=== PATIENT | male | born 1970 | race Caucasian/White ===

== ENCOUNTER → 2021-04-03 | Outpatient (CLI) | payer BC ==
[~2021-04-03] MED LIST: ALBU17IN2 INH; CELE10TA PO; CELE20TA PO; LIPI10TA PO; NO HOME MEDICATIONS; No home meds; PAXI20TA3 PO; TRAZ100T2 PO; VENTAER IN
== END ==
LOC: M LAB 10:39
PROVIDERS: ATTEND Nurse Practitioner Family
DX: F31.30 Bipolar disorder, current episode depressed, mild or moderate severity, unspecified (principal)

== ENCOUNTER → 2021-05-08 | Outpatient (CLI) | payer BC ==
[2021-05-08 11:19] LABS: HEMATOCRIT 41.5 % (42.0-52.0); HEMOGLOBIN 14.5 g/dl (13.5-17.5); MEAN CORPUSCULAR HEMOGLOBIN 30.1 pg (27.0-33.0); MEAN CORPUSCULAR HGB CONC 34.9 g/dl (32.0-36.5); MEAN CORPUSCULAR VOLUME 86.3 fl (80.0-96.0); PLATELET COUNT, AUTOMATED 317 10^3/uL (150-450); RED BLOOD COUNT 4.81 10^6/uL (4.30-6.10); WHITE BLOOD COUNT 7.5 10^3/uL (4.0-10.0)
[2021-05-08 12:18] LABS: ALBUMIN 4.2 GM/DL (3.2-5.2); ALT/SGPT 39 U/L (12-78); BILIRUBIN,TOTAL 0.7 MG/DL (0.2-1.0); BLOOD UREA NITROGEN 14 MG/DL (7-18); CARBON DIOXIDE LEVEL 26 MEQ/L (21-32); CHLORIDE LEVEL 106 MEQ/L (98-107); CREATININE FOR GFR 0.94 MG/DL (0.70-1.30); GLOMERULAR FILTRATION RATE > 60.0 (>60); GLUCOSE, FASTING 109 MG/DL (70-100); LITHIUM LEVEL 0.31 MEQ/L (0.60-1.20); POTASSIUM SERUM 4.4 MEQ/L (3.5-5.1); SODIUM LEVEL 139 MEQ/L (136-145); TOTAL PROTEIN 7.4 GM/DL (6.4-8.2)
== END ==
LOC: M LAB 10:17
PROVIDERS: ATTEND Nurse Practitioner Family
DX: F31.30 Bipolar disorder, current episode depressed, mild or moderate severity, unspecified (principal)

== ENCOUNTER → 2021-06-06 | Outpatient (CLI) | payer BC | LOC: M LAB 09:56 | PROVIDERS: ATTEND Nurse Practitioner Family | DX: F31.30 Bipolar disorder, current episode depressed, mild or moderate severity, unspecified (principal) ==

== ENCOUNTER → 2021-08-08 | Outpatient (CLI) | payer BC | LOC: M LAB 13:04 | PROVIDERS: ATTEND Nurse Practitioner Family | DX: F31.30 Bipolar disorder, current episode depressed, mild or moderate severity, unspecified (principal); Z51.81 Encounter for therapeutic drug level monitoring ==

== ENCOUNTER → 2021-12-24 | Outpatient (CLI) | payer BC ==
[2021-12-24 10:56] LABS: BASO # 0.1 10^3/uL (0.0-0.2); BASO % 0.9 % (0.0-1.0); EOS # 0.2 10^3/uL (0.0-0.5); EOS % 2.6 % (0.0-3.0); HEMATOCRIT 41.1 % (42.0-52.0); HEMOGLOBIN 14.6 g/dl (13.5-17.5); LYMPH # 1.8 10^3/uL (1.5-5.0); LYMPH % 22.7 % (24.0-44.0); MEAN CORPUSCULAR HEMOGLOBIN 30.2 pg (27.0-33.0); MEAN CORPUSCULAR HGB CONC 35.5 g/dl (32.0-36.5); MEAN CORPUSCULAR VOLUME 84.9 fl (80.0-96.0); MONO # 0.8 10^3/uL (0.0-0.8); MONO % 10.3 % (2.0-8.0); NEUTROPHILS # 5.1 10^3/uL (1.5-8.5); NEUTROPHILS % 63.3 % (36.0-66.0); PLATELET COUNT, AUTOMATED 363 10^3/uL (150-450); RED BLOOD COUNT 4.84 10^6/uL (4.30-6.10); WHITE BLOOD COUNT 8.1 10^3/uL (4.0-10.0)
[2021-12-24 12:17] LABS: ALBUMIN 4.2 GM/DL (3.2-5.2); BLOOD UREA NITROGEN 11 MG/DL (7-18); CALCIUM LEVEL 9.9 MG/DL (8.5-10.1); CARBON DIOXIDE LEVEL 28 MEQ/L (21-32); CHLORIDE LEVEL 107 MEQ/L (98-107); CHOLESTEROL LEVEL 214 MG/DL (<200); CHOLESTEROL RISK RATIO 6.294 (<5); CREATININE FOR GFR 0.95 MG/DL (0.70-1.30); FERRITIN 112 NG/ML (26-388); FOLATE 17.8 NG/ML (>5.4); GLOMERULAR FILTRATION RATE > 60.0 (>60); GLUCOSE, FASTING 113 MG/DL (70-100); HDL CHOLESTEROL 34 MG/DL (>40); HEMOGLOBIN A1c 5.7 %; NON-HDL-C 180 MG/DL; PHOSPHORUS LEVEL 3.7 MG/DL (2.5-4.9); POTASSIUM SERUM 4.5 MEQ/L (3.5-5.1); SODIUM LEVEL 141 MEQ/L (136-145); TRIGLYCERIDES LEVEL 413 MG/DL (<150); VITAMIN B12 LEVEL 602 PG/ML (247-911)
== END ==
LOC: M LAB 10:29
PROVIDERS: ATTEND Physician Assistant
DX: Z02.2 Encounter for examination for admission to residential institution (principal); Z13.1 Encounter for screening for diabetes mellitus; Z13.5 Encounter for screening for eye and ear disorders; I10 Essential (primary) hypertension; R20.9 Unspecified disturbances of skin sensation; R53.83 Other fatigue; E66.9 Obesity, unspecified

== ENCOUNTER → 2022-02-04 | Outpatient (CLI) | payer BC | LOC: M LAB 10:10 | PROVIDERS: ATTEND Nurse Practitioner Family | DX: F31.30 Bipolar disorder, current episode depressed, mild or moderate severity, unspecified (principal) ==

== ENCOUNTER → 2022-05-22 | Outpatient (CLI) | payer OTHER, SELFPAY | LOC: M LAB 15:16 | PROVIDERS: ATTEND Registered Nurse Psychiatric/Mental Health | DX: F31.30 Bipolar disorder, current episode depressed, mild or moderate severity, unspecified (principal) ==

== ENCOUNTER → 2022-06-03 | Outpatient (CLI) | payer OTHER | LOC: M SLEEP HO 08:56 | PROVIDERS: ATTEND Nurse Practitioner Family | DX: R06.83 Snoring (principal) ==

== ENCOUNTER → 2022-07-29 | Outpatient (REF) | LOC: M PLAIMG 11:49 | PROVIDERS: ATTEND Internal Medicine | DX: M43.16 Spondylolisthesis, lumbar region (principal) ==

== ENCOUNTER 2024-03-16 10:40 | Emergency (ER) | payer OTHER ==
[2024-03-16] MEDS: KETOROLAC 30 MG/ML 1ML VIAL IV ONE (11:47)
[2024-03-16] MEDS: METHOCARBAMOL 1,000 MG/10 ML VIAL IV ONE (11:47)
[2024-03-16 11:50] LABS: BASO # 0.1 10^3/uL (0.0-0.2); BASO % 0.7 % (0.0-1.0); EOS # 0.2 10^3/uL (0.0-0.5); HEMATOCRIT 40.4 % (42.0-52.0); HEMOGLOBIN 14.6 g/dl (13.5-17.5); LYMPH # 1.9 10^3/uL (1.5-5.0); LYMPH % 23.2 % (24.0-44.0); MEAN CORPUSCULAR HEMOGLOBIN 32.2 pg (27.0-33.0); MEAN CORPUSCULAR HGB CONC 36.1 g/dl (32.0-36.5); MEAN CORPUSCULAR VOLUME 89.2 fl (80.0-96.0); MONO # 0.5 10^3/uL (0.0-0.8); MONO % 6.1 % (2.0-8.0); NEUTROPHILS # 5.4 10^3/uL (1.5-8.5); NEUTROPHILS % 67.6 % (36.0-66.0); PLATELET COUNT, AUTOMATED 255 10^3/uL (150-450); RED BLOOD COUNT 4.53 10^6/uL (4.30-6.10)
[2024-03-16] MEDS: methylPREDNISolone 125MG 2ML VIAL IV ONE (13:05)
[2024-03-16] MEDS ORDERED: METH-1165 PO (13:39)
[2024-03-16 13:43] VITALS: BP 143/81; TEMP 98.2; O2SAT 99
== END 2024-03-16 14:05 | disposition home or self-care (01) ==
LOC: M ED 10:40 → EDBD 10:40 → M ED 14:05
DX: M62.838 Other muscle spasm (principal); M54.50 Low back pain, unspecified; I10 Essential (primary) hypertension; M51.36 Other intervertebral disc degeneration, lumbar region; M54.30 Sciatica, unspecified side; F17.200 Nicotine dependence, unspecified, uncomplicated; Z79.899 Other long term (current) drug therapy
CPT/HCPCS: 80047; 85025; 96374; 96375; 99284; J1885; J2800; J2919

== ENCOUNTER 2024-05-09 18:28 | Emergency (ER) | payer OTHER ==
[~2024-05-09] VITALS: Ht 182.9 cm; Wt 91.9 kg
[~2024-05-09 18:28] MED LIST changes: +METH-1165 PO
[2024-05-09] MEDS: LIDOCAINE 5% (LIDODERM) PATCH TD ONE (22:46)
[2024-05-09] MEDS: KETOROLAC 30 MG/ML 1ML VIAL IM ONE (22:47)
[2024-05-09] MEDS: diazePAM 5MG TABLET PO ONE (22:47)
[2024-05-09] MEDS ORDERED: METH-1164 PO (23:56)
[2024-05-09] MEDS ORDERED: NAPR-837 PO (23:56)
[2024-05-09] MEDS ORDERED: LIDO5DIS41 TD (23:56)
[2024-05-10 00:07] VITALS: BP 132/78; TEMP 97.2; O2SAT 99
== END 2024-05-10 00:12 | disposition home or self-care (01) ==
LOC: M ED 18:28 → EDBD 18:28 → M ED 05-10 00:12
DX: M54.50 Low back pain, unspecified (principal); M62.830 Muscle spasm of back; I10 Essential (primary) hypertension; J44.9 Chronic obstructive pulmonary disease, unspecified; F32.A Depression, unspecified; F17.210 Nicotine dependence, cigarettes, uncomplicated; Z79.51 Long term (current) use of inhaled steroids; Z79.899 Other long term (current) drug therapy
CPT/HCPCS: 96372; 99284; J1885